=== PATIENT | female | born 1970 | race Caucasian/White ===

== ENCOUNTER 2017-08-17 10:52 | Emergency (ER) | payer SELFPAY ==
[2017-08-17 10:58] VITALS: BP 131/72; PULSE 98; TEMP 98; O2SAT 99; BMI 35.3
[2017-08-17] MEDS ORDERED: Sodium Chloride 0.9% 1,000 ML IV STA (11:28)
--- NOTE | 2017-08-17 11:40 | ED PDOC ---
HPI: General Adult Time Seen by Provider: 08/17/17 11:11 Chief Complaint (Nursing): Female Genitourinary History Per: Patient Additional Complaint(s): Pt. states since she's had heavy vaginal bleeding. States that she's had to use a diaper and has been changing it every 1-1.5 hours. Reports she had similar symptoms 2 years ago and required admission and blood transfusions. Also reports that she had a TVUS done on 05/2017 and was told she had fibroids. Also reports having headache. States headache is gradual in onset and is associated with light sensitivity and nausea but no vomiting. Denies weakness, dysuria, trauma, fever, diarrhea. LMP 07/19/2017. . Past Medical History Reviewed: Historical Data, Nursing Documentation, Vital Signs Vital Signs: Last Vital Signs Temp 98 F 08/17/17 10:57 Pulse 98 H 08/17/17 10:57 Resp BP 131/72 08/17/17 10:57 Pulse Ox 99 08/17/17 11:41 - Medical History PMH: Anemia Denies: Asthma, Diabetes, HIV, Chronic Kidney Disease - Surgical History Surgical History: Appendectomy, Back Surgery - Family History Family History: States: No Known Family Hx - Home Medications Home Medications: Ambulatory Orders Medication Instructions Recorded Acetaminophen [Tylenol Extra 1,000 mg PO Q8H PRN 08/02/15 Strength] Ethinyl Estradiol/Norgestima 1 tab PO DAILY 08/02/15 [Ortho-Cyclen 35 Mcg-0.25 mg] Ferrous Sulfate 650 mg PO DAILY 08/02/15 MedroxyPROGESTERone [Provera] 10 mg PO DAILY #10 tab 08/03/15 Naproxen [Naprosyn] 500 mg PO BID PRN #30 tab 08/17/17 - Allergies Allergies/Adverse Reactions: Allergies Allergy/AdvReac Type Severity Reaction Status Date / Time No Known Allergies Allergy Verified 08/17/17 11:10 Review of Systems ROS Statement: Except As Marked, All Systems Reviewed And Found Negative Genitourinary Female: Positive for: Vaginal Bleeding Neurological: Positive for: Weakness, Headache Physical Exam - Reviewed Nursing Documentation Reviewed: Yes Vital Signs Reviewed: Yes - Physical Exam Appears: Positive for: Well, Non-toxic, No Acute Distress Head Exam: Positive for: ATRAUMATIC, NORMAL INSPECTION, NORMOCEPHALIC Skin: Positive for: Normal Color, Warm. Negative for: Rash Eye Exam: Positive for: EOMI, Normal appearance, PERRL ENT: Positive for: Normal ENT Inspection Neck: Positive for: Normal, Painless ROM Cardiovascular/Chest: Positive for: Regular Rate, Rhythm Respiratory: Positive for: CNT, Normal Breath Sounds Gastrointestinal/Abdominal: Positive for: Normal Exam, Bowel Sounds, Soft. Negative for: Tenderness Back: Positive for: Normal Inspection. Negative for: L CVA Tenderness, R CVA Tenderness Extremity: Positive for: Normal ROM Neurologic/Psych: Positive for: Alert, Oriented. Negative for: Aphasia, Facial Droop - Laboratory Results Result Diagrams: 08/17/17 12:20 08/17/17 12:20 - ECG O2 Sat by Pulse Oximetry: 99 - Progress ED Course And Treament: Labs ordered. TVUS ordered. IV NS bolus ordered. TVUS: Thickened endometrium with suspicion for underlying endometrial polyp. Recommend correlation with sonohysterography. Scattered small leiomyomata. 1342 On re-evaluation, pt. reports feeling much better. Pt. states she has scheduled appointment with her OBGYN on . Instructed to f/u as such without fail and to return to ED immediately if symptoms worsen. Disposition - Clinical Impression Clinical Impression: Fibroids - Patient ED Disposition Is Patient to be Admitted: No - Disposition Disposition: Routine/Home Disposition Time: 13:44 Condition: STABLE Additional Instructions: Follow up with your OBGYN on as scheduled without fail. Prescriptions: Naproxen [Naprosyn] 500 mg PO BID PRN #30 tab PRN Reason: Pain Instructions: Uterine Fibroids (ED) Forms: [facility] (German) Print Language: SALVADOREAN
[2017-08-17 12:04] LABS: PH,URINE 1.015 (5.0-8.0); URINE BILIRUBIN NEGATIVE (NEGATIVE); URINE BLOOD LARGE (NEGATIVE); URINE COLOR PINK (YELLOW); URINE GLUCOSE (UA) NEGATIVE (Normal); URINE KETONE NEGATIVE (NEGATIVE); URINE PROTEIN 100 mg/dL (NEGATIVE); URINE UROBILINOGEN 0.2 mg/dL (0.2-1.0)
[2017-08-17 12:05] LABS: RBC URINE > 200 /hpf (0-3); URINE BACTERIA RARE (<OCC); URINE LEUKOCYTE ESTERASE NEGATIVE Leu/uL (Negative); WBC URINE < 1 /hpf (0-5)
[2017-08-17 12:36] LABS: BASO % 0.6 % (0.0-2.0); EOS # 0.1 K/uL (0.0-0.7); EOS % 2.9 % (0.0-4.0); HEMATOCRIT 31.1 % (34.0-47.0); LYMPH # 1.3 K/uL (1.0-4.3); LYMPH % 35.4 % (20.0-40.0); MEAN CORPUSCULAR HEMOGLOBIN 27.8 pg (27.0-31.0); MEAN CORPUSCULAR HGB CONC 32.6 g/dL (33.0-37.0); MEAN PLATELET VOLUME 8.7 fl (7.2-11.7); MONO # 0.2 K/uL (0.0-0.8); MONO % 6.9 % (0.0-10.0); NEUT # 1.9 K/uL (1.8-7.0); NEUT % 54.2 % (50.0-75.0); RED CELL DISTRIBUTION WIDTH 16.1 % (11.5-14.5); WHITE BLOOD COUNT 3.6 K/uL (4.8-10.8)
[2017-08-17 12:39] LABS: MEAN CELL VOLUME 85.2 fl (81.0-99.0)
[2017-08-17 12:43] LABS: ALB/GLOB RATIO 1.2 (1.0-2.1); ALKALINE PHOSPHATASE 49 U/L (38-126); ALT/SGPT 30 U/L (9-52); AST/SGOT 15 U/L (14-36); BILIRUBIN,TOTAL < 0.1 mg/dl (0.2-1.3); BLOOD UREA NITROGEN 13 mg/dl (7-17); CALCIUM 8.8 mg/dL (8.4-10.2); CARBON DIOXIDE 26 mmol/L (22-30); CHLORIDE 108 mmol/L (98-107); GFR AFRICAN-AMERICAN > 60; GLUCOSE,RANDOM 128 mg/dL (65-105); PARTIAL THROMBOPLASTIN TIME 27.7 Seconds (25.6-37.1); POTASSIUM 3.9 MMOL/L (3.6-5.0); SODIUM 142 mmol/l (132-148); TOTAL PROTEIN 6.6 G/DL (6.3-8.2)
--- NOTE | 2017-08-17 12:55 | US ---
PROCEDURE: HISTORY: pelvic pain COMPARISON: TECHNIQUE: FINDINGS: There is a leiomyomatous uterus measuring 10.6 x 6.5 x 7.3 centimeters. At 1.3 centimeter anterior myoma is present. The endometrium measures 16 millimeters with heterogeneity and intra endometrial cystic foci which could represent a polyp. The right ovary measures 2.9 x 1.9 x 2.4 centimeters. The left ovary measures 2.8 x 1.5 x 2.7 centimeters. Periuterine varicosities are noted. There is no free fluid in the pelvis. IMPRESSION: Thickened endometrium with suspicion for underlying endometrial polyp. Recommend correlation with sonohysterography. Scattered small leiomyomata.
== END 2017-08-17 14:41 | disposition home or self-care (01) ==
LOC: H.ER 10:52
DX: D25.9 Leiomyoma of uterus, unspecified (principal); D64.9 Anemia, unspecified
CPT/HCPCS: 76830; 80053; 81003; 81025; 85025; 85610; 85730; 86850; 86900; 87086; 99284; J2765; J7040

== ENCOUNTER 2018-06-11 18:48 | Emergency (ER) | payer SELFPAY ==
[2018-06-11 18:49] VITALS: BMI 35.9
[2018-06-11] MEDS ORDERED: Sodium Chloride 0.9% 1,000 ML IV STA (20:21)
--- NOTE | 2018-06-11 20:52 | ED PDOC ---
HPI: Abdomen Time Seen by Provider: 06/11/18 20:12 Chief Complaint (Nursing): Abdominal Pain Chief Complaint (Provider): Abdominal pain History Per: Patient, Nuclear Medicine Technologist ([id number]) History/Exam Limitations: no limitations Onset/Duration Of Symptoms: Days (3) Current Symptoms Are (Timing): Still Present Location Of Pain/Discomfort: Epigastric Quality Of Discomfort: Pressure Associated Symptoms: Fever, Chills. denies: Vomiting, Diarrhea, Constipation, Urinary Symptoms Exacerbating Factors: Food Additional History Per: Patient Additional Complaint(s): 48yo female with no known past medical history, comes to ER complaining of abdominal pain with associated nausea and subjective fevers x 3 days. She also reports chills and sweats at home. Patient states the pain is mainly epigastric and describes it as a pressure like sensation which is worse with eating. She denies any vomiting, abnormal bowel movement, dysuria or hematuria. She has no additional medical complaints. PMD: [facility] Past Medical History Reviewed: Historical Data, Nursing Documentation, Vital Signs Vital Signs: Last Vital Signs Temp 98.8 F 06/11/18 19:16 Pulse 85 06/11/18 19:16 Resp 16 06/11/18 19:16 BP 105/66 06/11/18 19:16 Pulse Ox 97 06/11/18 21:53 - Medical History PMH: Anemia Denies: Asthma, Diabetes, HIV, Chronic Kidney Disease - Surgical History Surgical History: Appendectomy, Back Surgery - Family History Family History: States: No Known Family Hx - Home Medications Home Medications: Ambulatory Orders Medication Instructions Recorded Acetaminophen [Tylenol Extra 1,000 mg PO Q8H PRN 08/02/15 Strength] Ethinyl Estradiol/Norgestima 1 tab PO DAILY 08/02/15 [Ortho-Cyclen 35 Mcg-0.25 mg] Ferrous Sulfate 650 mg PO DAILY 08/02/15 MedroxyPROGESTERone [Provera] 10 mg PO DAILY #10 tab 08/03/15 Naproxen [Naprosyn] 500 mg PO BID PRN #30 tab 08/17/17 Omeprazole 20 mg PO DAILY #30 capsule. 06/11/18 - Allergies Allergies/Adverse Reactions: Allergies Allergy/AdvReac Type Severity Reaction Status Date / Time No Known Allergies Allergy Verified 06/11/18 19:16 Review of Systems ROS Statement: Except As Marked, All Systems Reviewed And Found Negative Constitutional: Positive for: Fever (sbjective), Chills, Sweats Gastrointestinal: Positive for: Nausea, Abdominal Pain. Negative for: Vomiting , Diarrhea, Constipation Genitourinary Female: Negative for: Dysuria, Frequency, Hematuria Physical Exam - Reviewed Nursing Documentation Reviewed: Yes Vital Signs Reviewed: Yes - Physical Exam Appears: Positive for: Non-toxic, No Acute Distress Head Exam: Positive for: ATRAUMATIC, NORMAL INSPECTION, NORMOCEPHALIC Skin: Positive for: Normal Color, Warm Eye Exam: Positive for: Normal appearance Neck: Positive for: Normal, Supple Cardiovascular/Chest: Positive for: Regular Rate, Rhythm Respiratory: Positive for: Normal Breath Sounds Gastrointestinal/Abdominal: Positive for: Soft, Tenderness (epigastric tenderness to deep palpation; negative Tatum's sign). Negative for: Guarding, Rebound Back: Positive for: Normal Inspection Extremity: Positive for: Normal ROM Neurologic/Psych: Positive for: Alert, Oriented. Negative for: Motor/Sensory Deficits - Laboratory Results Result Diagrams: 06/11/18 20:46 06/11/18 20:46 - ECG O2 Sat by Pulse Oximetry: 97 (RA) Pulse Ox Interpretation: Normal Medical Decision Making Medical Decision Making: Assessment: 48yo female with no past medical history here with abdominal pain, subjective fever Patient is well appearing and has normal vital signs. Differential: Gastritis vs. peptic ulcer vs. galbladder disease vs. pancreatitis Plan: * Labs * Urinalysis * Pancreas and Galbladder US * Pepcid 20mg IV * Zofran 4mg IVP * IV Fluids 2149 US Galbladder and Pancreas FINDINGS: Liver: The liver is diffusely hyperechoic suggestive of fatty infiltration. Normal hepatic contour. No hepatic mass. No intrahepatic biliary duct dilatation. Gallbladder: The gallbladder is normal in size. No stones, wall thickening, or pericholecystic fluid. Trace dependent gallbladder sludge. No gallbladder wall thickening. The gallbladder wall measures 2 mm in diameter. The or first assist registered nurse reports a negative sonographic Tatum's sign. Common bile duct: Normal caliber common bile duct measuring 0.4 cm in diameter. Pancreas: The imaged proximal pancreas is unremarkable. The distal pancreas is not well seen secondary to overlying bowel. Right kidney: The right kidney is normal in size and echotexture without stone or hydronephrosis, measuring 11.9 cm in length. Aorta: Normal appearance of the imaged aorta. IVC: Normal appearance of the imaged IVC. IMPRESSION: 1. No cholelithiasis or sonographic evidence of acute cholecystitis. 2. Trace gallbladder sludge. 3. Hepatic steatosis. Patient is feeling much better, no longer in pain, no longer nauseated. Tolerating PO. Results communicated via [employer] bobbin winder tender, all questions answered. Diet modification and PPI instructed. Adivsed to followup with PMD. Return precautions given. Scribe Attestation: Documented by Ashly Sanford, acting as a scribe for David Hubbard MD. Provider Scribe Attestation: All medical record entries made by the Scribe were at my direction and personally dictated by me. I have reviewed the chart and agree that the record accurately reflects my personal performance of the history, physical exam, medical decision making, and the department course for this patient. I have also personally directed, reviewed, and agree with the discharge instructions and disposition. Disposition - Clinical Impression Clinical Impression: Gastritis - Patient ED Disposition Is Patient to be Admitted: No - Disposition Referrals: Zane Varela MD [Family Provider] - Disposition: Routine/Home Disposition Time: 22:19 Condition: IMPROVED Prescriptions: Omeprazole 20 mg PO DAILY #30 capsule.dr Instructions: Gastritis, Ulcer and Gastritis Diet Forms: [facility] (Mongolian) Print Language: POLISH
[2018-06-11 21:09] LABS: BASO % 0.2 % (0.0-2.0); EOS % 0.9 % (0.0-4.0); HEMOGLOBIN 10.6 g/dL (12.0-16.0); LYMPH # 0.7 K/uL (1.0-4.3); LYMPH % 14.7 % (20.0-40.0); MEAN CELL VOLUME 77.2 fl (81.0-99.0); MEAN CORPUSCULAR HEMOGLOBIN 25.2 pg (27.0-31.0); MEAN CORPUSCULAR HGB CONC 32.6 g/dL (33.0-37.0); MEAN PLATELET VOLUME 8.5 fl (7.2-11.7); MONO # 0.3 K/uL (0.0-0.8); MONO % 6.9 % (0.0-10.0); NEUT # 3.5 K/uL (1.8-7.0); NEUT % 77.3 % (50.0-75.0); NRBC % 0.1 % (0.0-0.0); RBC 4.21 Mil/uL (3.80-5.20); RED CELL DISTRIBUTION WIDTH 17.5 % (11.5-14.5); WHITE BLOOD COUNT 4.5 K/uL (4.8-10.8)
[2018-06-11 21:13] LABS: SQUAMOUS EPITHIAL < 1 /hpf (0-5); URINE BILIRUBIN NEGATIVE (NEGATIVE); URINE BLOOD NEGATIVE (NEGATIVE); URINE CLARITY CLEAR (Clear); URINE COLOR STRAW (YELLOW); URINE GLUCOSE (UA) NEG (Normal); URINE LEUKOCYTE ESTERASE NEG Leu/uL (Negative); URINE PROTEIN NEGATIVE (NEGATIVE); URINE UROBILINOGEN 0.2-1.0 mg/dL (0.2-1.0)
[2018-06-11 21:37] LABS: ALB/GLOB RATIO 1.2 (1.0-2.1); ALBUMIN 3.8 g/dL (3.5-5.0); ALT/SGPT 31 U/L (9-52); AST/SGOT 23 U/L (14-36); BLOOD UREA NITROGEN 8 mg/dl (7-17); CALCIUM 8.8 mg/dL (8.4-10.2); GFR AFRICAN-AMERICAN > 60; GFR NON-AFRICAN AMERICAN > 60; LIPASE 54 U/L (23-300)
[2018-06-11 22:30] VITALS: BP 119/60; PULSE 73; RESP 18; TEMP 98.5; O2SAT 96
--- NOTE | 2018-06-12 09:41 | US ---
Date of service: 06/11/2018 HISTORY: epig pain COMPARISON: None. TECHNIQUE: Sonographic evaluation of the right upper quadrant of the abdomen. FINDINGS: LIVER: Measures 20.2 cm in length. Diffusely increased echogenicity of the liver parenchyma. Consistent with fatty infiltration. Smooth contour. No mass. No biliary ductal dilatation. Normal hepatopetal portal venous flow. GALLBLADDER: Unremarkable. No gallstones. COMMON BILE DUCT: Measures 4 mm. No stones. No dilatation. PANCREAS: Unremarkable as visualized. No mass. No ductal dilatation. RIGHT KIDNEY: Measures 11.9 cm in length. Normal echogenicity. No calculus, mass, or hydronephrosis. AORTA: No aneurysmal dilatation. IVC: Unremarkable. OTHER FINDINGS: None . IMPRESSION: Mild hepatomegaly with fatty infiltration of the liver. No evidence of cholelithiasis or cholecystitis. The preliminary findings for this examination were reported by [facility] at 9:49 p.m. on 06/11/2018. There is concurrence of this report with the preliminary findings.
== END 2018-06-11 22:31 | disposition home or self-care (01) ==
LOC: H.ER 18:48
DX: K29.70 Gastritis, unspecified, without bleeding (principal); K82.9 Disease of gallbladder, unspecified
CPT/HCPCS: 76705; 80053; 81003; 81025; 83690; 85025; 96374; 96375; 99284; J2405; J7030

== ENCOUNTER 2018-08-18 07:08 | Day surgery (SDC) | payer SELFPAY ==
[2018-08-17 12:18] VITALS: BMI 35.9
[2018-08-18] MEDS ORDERED: Lactated Ringer's 1,000 ML IV ONE (08:30)
[2018-08-18] MEDS ORDERED: Propofol 10 mg/ml Inj (20 ML) ONE (09:18)
[2018-08-18] MEDS ORDERED: Midazolam 2 MG/2 ML VIAL ONE (09:19)
[2018-08-18] MEDS ORDERED: Lidocaine 4% (Laryng-O-Jet) Kit MM ONE (09:19)
[2018-08-18] MEDS ORDERED: Succinylcholine 200 mg/10 ml Inj IV ONE (09:19)
[2018-08-18] MEDS ORDERED: Silver Nitrate Topical - Stick TOP ONE (10:29)
[2018-08-18] MEDS ORDERED: Silver Nitrate Topical - Stick ONE (10:30)
[2018-08-18] MEDS: Lactated Ringer's 1,000 ML IV SCH ×2 (12:05→12:20)
[2018-08-18 13:47] VITALS: BP 118/78; PULSE 77; RESP 20; TEMP 98.6; O2SAT 98
--- NOTE | 2018-08-23 10:43 | OP ---
PROCEDURE DATE: 08/18/2018 PREOPERATIVE DIAGNOSIS: Heavy menstrual bleeding. POSTOPERATIVE DIAGNOSIS: Heavy menstrual bleeding. PROCEDURE: Hysteroscopy, dilatation and curettage. SURGEON: Venkata Guajardo MD [employer] SUPERVISOR: Lissette Gonzalez, PGY-2 FINDINGS: Upon hysteroscopic evaluation, endometrial thickening seen throughout, greatest on posterior wall. No distinct polyps or fibroids noted. ESTIMATED BLOOD LOSS: 10 mL. INTRAVENOUS FLUIDS: 300 mL lactated Ringer's. URINE OUTPUT: 20 mL of clear yellow urine drained with red rubber catheter. DESCRIPTION OF PROCEDURE: The patient was taken to the operating room and given general anesthesia without difficulty. She was then prepped and draped in a normal sterile fashion in the dorsal lithotomy position. A bimanual exam was performed and a normal-sized uterus was palpated with no abnormal adnexal findings. A weighted speculum was then placed in the patient's vagina and the cervix was visualized. The anterior lip of the cervix was grasped with the single tooth tenaculum. The uterus was then sounded to 9 cm. The endocervical canal was then progressively dilated with Fritz and Hegar dilators to allow for entry of the hysteroscope. The hysteroscope was then introduced into the uterine cavities using sterile saline as the distending media with the attached camera. The endometrial cavity was then distended with fluids and the cavity was well visualized. Thickened endometrium was seen throughout with no distinct polyps noted and the coronal areas were then visualized bilaterally with corresponding tubal ostia. There were no direct intraluminal lesions seen. Several pictures were then taken of the endometrial cavity and the hysteroscope was removed from the cavity. A large curette was then used to obtain a moderate amount of tissue from the endometrial cavity and then from the endocervical cavity. The tissue will be sent to pathology for evaluation. All instruments were then removed from the vaginal vault. Good hemostasis was noted throughout. After, silver nitrate was placed in the area where the tenaculum was placed for the procedure. The patient was repositioned and awakened from anesthesia. She was transferred to the recovery room in stable condition. She would be sent home with Motrin for pain, informed to continue pelvic rest and to follow up in two weeks in the office for post-procedure evaluation and review of pathology results. Venkata Guajardo MD [facility] # [id number]
== END 2018-08-18 13:45 | disposition home or self-care (01) ==
LOC: H.OPSURG 07:08
PROVIDERS: ATTEND Obstetrics & Gynecology
DX: N93.9 Abnormal uterine and vaginal bleeding, unspecified (principal); E66.9 Obesity, unspecified; D64.9 Anemia, unspecified; N72 Inflammatory disease of cervix uteri; N92.0 Excessive and frequent menstruation with regular cycle
CPT/HCPCS: 58558; 88305; J0330; J1885; J2001; J2250; J2704; J3010; J7030; J7120